=== PATIENT | male | born 1940 ===

== ENCOUNTER 2018-12-29 16:16 | Inpatient (IN) | payer MEDICARE, MEDICAID ==
[2018-12-29 16:22] VITALS: BMI 20.7
--- NOTE | 2018-12-29 17:12 | ED PDOC ---
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 Patient states that he has been sick with a cough, sore throat for X3 days. Patient history was given by patients daughter. The daughter states that patient went to PMD today and started feeling sick to the stomach and passed out while he was in the waiting room. Daughter states that the patient was sitting next to her and leaned to one side, and his eyes rolled back. Daughter also reports that patient made some moaning noises and did not respond to any of her questions. Patient vomited in the doctors office and on route to the hospital. The daughter reports that it took the patient 10-15 minutes to come back to normal. Patient reports he doesnt remember passing out. Patient reports that his stomach hurts and he thinks it is because he hasnt ea ten since this morning. Hes currently oriented times 3. According to the daughter patient hasnt seen PMD in about a year. He has not been taking his medication for hypertension, hypercholesterolemia. Patient denies headache and chest pain. PMD: Loco Parsons Jr, MD Past Medical History Reviewed: Historical Data, Nursing Documentation, Vital Signs Vital Signs: Last Vital Signs Temp 98.9 F 12/29/18 16:21 Pulse 71 12/29/18 16:21 Resp 18 12/29/18 16:21 BP 167/87 H 12/29/18 16:21 Pulse Ox 100 12/29/18 16:21 CATHIE Report Viewed: Yes - Medical History PMH: HTN, Hypercholesterolemia Other PMH: Stroke - Surgical History Surgical History: No Surg Hx - Family History Family History: States: Hypertension - Social History Current smoker - smoking cessation education provided: No Alcohol: None Drugs: Denies - Home Medications Home Medications: Ambulatory Orders Medication Instructions Recorded Aspirin [Ecotrin] 81 mg PO DAILY 12/29/18 Atorvastatin [Lipitor] 40 mg PO HS 12/29/18 Lisinopril [Zestril] 20 mg PO DAILY 12/29/18 Sennosides [Senna Lax] 8.6 mg PO DAILY PRN 12/29/18 amLODIPine [Norvasc] 10 mg PO DAILY 12/29/18 Acetaminophen [Tylenol 325mg tab] 650 mg PO Q4 PRN tab 12/31/18 - Allergies Allergies/Adverse Reactions: Allergies Allergy/AdvReac Type Severity Reaction Status Date / Time Penicillins Allergy RASH Verified 12/29/18 16:21 Review of Systems ROS Statement: Except As Marked, All Systems Reviewed And Found Negative ENT: Positive for: Other (sore throat) Cardiovascular: Negative for: Chest Pain Respiratory: Positive for: Cough Neurological: Negative for: Headache Physical Exam - Reviewed Nursing Documentation Reviewed: Yes Vital Signs Reviewed: Yes - Physical Exam Appears: Positive for: Non-toxic, No Acute Distress Head Exam: Positive for: ATRAUMATIC Skin: Positive for: Warm, Dry Eye Exam: Positive for: EOMI, PERRL ENT: Negative for: Pharyngeal Erythema, Tonsillar Exudate Neck: Positive for: Painless ROM, Supple Cardiovascular/Chest: Positive for: Regular Rate, Rhythm. Negative for: Murmur Respiratory: Positive for: Normal Breath Sounds. Negative for: Respiratory Distress Gastrointestinal/Abdominal: Positive for: Soft, Tenderness (epigastric tenderness on palpation). Negative for: Mass, Guarding, Rebound Back: Positive for: Normal Inspection. Negative for: Decreased ROM Extremity: Positive for: Normal ROM. Negative for: Deformity Lymphatic: Negative for: Adenopathy Neurological/Psych: Positive for: Awake, Alert, Oriented (x3), vehicle inspector II-XII (intac). Negative for: Motor/Sensory Deficits, Facial Droop - Laboratory Results Result Diagrams: 12/31/18 17:41 12/31/18 17:41 - ECG O2 Sat by Pulse Oximetry: 100 (RA) Pulse Ox Interpretation: Normal Medical Decision Making Medical Decision Making: Time: 16:22 Initial Impression: Altered Mental status Differential includes seizure, dehydration, electrolyte abnormality, TIA Plan: -Type and screen -CT head w/o contrast -Electrocardiogram -Complete metabolic panel -Lactic acid -Lipase -Magnesium -Phosphorous -troponin 1 -ED urine dipstick (POC) -EKG -CBC with differenital -re-evaluate 17:16 CHEST XRAY Accession No. : [id number] Patient Name / ID : GIORGI HUDSON / [id number] Exam Date : 12/29/2018 17:16:25 ( Approved ) Study Comment : Sex / Age : M / 78Y Creator : Dictator : Tirso Austin MD Web Analytics Developer : End Finder Forming Department : Tirso Austin MD Approver2 : Report Date : My Comment : Date of service: 12/29/2018 HISTORY: syncope COMPARISON: No prior. TECHNIQUE: 1 view obtained. FINDINGS: LUNGS: No active pulmonary disease. PLEURA: No significant pleural effusion identified, no pneumothorax apparent. CARDIOVASCULAR: No aortic atherosclerotic calcification present. Cardiomegaly is not excluded no pulmonary vascular congestion. OSSEOUS STRUCTURES: . VISUALIZED UPPER ABDOMEN: Normal. OTHER FINDINGS: None. IMPRESSION: No infiltrate or pulmonary vascular congestion. No pleural effusion bilaterally. Cardiomegaly is not excluded. 17:[address] Accession No. : [id number] Patient Name / ID : GIORGI HUDSON / [id number] Exam Date : 12/29/2018 17:10:29 ( Approved ) Study Comment : Sex / Age : M / 78Y Creator : Jayla Santos MD Dictator : Jayla Santos MD Web Analytics Developer : End Finder Forming Department : Jayla Santos MD Approver2 : Report Date : 12/29/2018 17:41:24 My Comment : Date of service: 12/29/2018 PROCEDURE: CT HEAD WITHOUT CONTRAST. HISTORY: syncope or new onset seizure COMPARISON: None available. TECHNIQUE: Axial computed tomography images were obtained through the head/brain without intravenous contrast. Radiation dose: Total exam DLP = 684.68 mGy-cm. This CT exam was performed using one or more of the following dose reduction te chniques: Automated exposure control, adjustment of the mA and/or kV according to patient size, and/or use of iterative reconstruction technique. FINDINGS: HEMORRHAGE: No intracranial hemorrhage. BRAIN: Diffuse atrophy with prominence of the ventricles and sulci noted. No mass effect or edema. Intracranial atherosclerosis. Scattered periventricular and subcortical white matter hypodensities, which are nonspecific, but often seen with chronic microvascular ischemic disease. Please note that MRI with diffusion imaging is more sensitive in the detection of acute ischemic event. VENTRICLES: No hydrocephalus. CALVARIUM: Unremarkable. PARANASAL SINUSES: Moderate mucosal thickening of the ethmoid air cells. MASTOID AIR CELLS: Unremarkable as visualized. No inflammatory changes. OTHER FINDINGS: None. IMPRESSION: No acute intracranial pathology identified. Moderate mucosal thickening of the ethmoid air cells; correlate clinically for chronic sinusitis. 1900 Labs unremarkable. Pt's exam essentially unchanged. Given pt's cardiovascular risk profile, needs obersvation for syncope Scribe Attestation: Documented by Chetan Bates, acting as a scribe for Sofiya Hernandez MD Provider Scribe Attestation: All medical record entries made by the Scribe were at my direction and personally dictated by me. I have reviewed the chart and agree that the record accurately reflects my personal performance of the history, physical exam, medical decision making, and the department course for this patient. I have also personally directed, reviewed, and agree with the discharge instructions and disposition Disposition - Clinical Impression Clinical Impression: Syncope and collapse Discussed With : Daniel Thompson Doctor Will See Patient In The: Hospital Counseled Patient/Family Regarding: Studies Performed, Diagnosis - Disposition Disposition Time: 19:00 Condition: FAIR - Pt Status Changed To: Hospital Disposition Of: Observation - POA Present On Arrival: Falls Or Trauma
[2018-12-29 17:17] LABS: BASO # 0.1 K/uL (0.0-0.2); BASO % 0.5 % (0.0-2.0); EOS # 0.3 K/uL (0.0-0.7); EOS % 2.4 % (0.0-4.0); HEMOGLOBIN 13.4 g/dL (12.0-18.0); LYMPH % 8.6 % (20.0-40.0); MEAN CELL VOLUME 89.2 fl (80.0-94.0); MEAN CORPUSCULAR HEMOGLOBIN 29.7 pg (27.0-31.0); MEAN CORPUSCULAR HGB CONC 33.3 g/dL (33.0-37.0); MEAN PLATELET VOLUME 8.1 fl (7.2-11.7); MONO # 0.8 K/uL (0.0-0.8); MONO % 7.1 % (0.0-10.0); NEUT # 9.2 K/uL (1.8-7.0); NEUT % 81.4 % (50.0-75.0); NRBC % 0.1 % (0.0-0.0); PLATELET COUNT 174 K/uL (130-400); RED CELL DISTRIBUTION WIDTH 14.1 % (11.5-14.5); WHITE BLOOD COUNT 11.3 K/uL (4.8-10.8)
[2018-12-29 17:22] LABS: PROTHROMBIN TIME 11.4 Seconds (9.8-13.1)
[2018-12-29 17:24] LABS: PARTIAL THROMBOPLASTIN TIME 26.2 Seconds (25.6-37.1)
[2018-12-29 17:29] LABS: ALB/GLOB RATIO 1.2 (1.0-2.1); ALBUMIN 4.4 g/dL (3.5-5.0); ALT/SGPT 33 U/L (21-72); AST/SGOT 34 U/L (17-59); BLOOD UREA NITROGEN 24 mg/dl (9-20); CALCIUM 9.5 mg/dL (8.4-10.2); GFR NON-AFRICAN AMERICAN 59; LIPASE 26 U/L (23-300)
--- NOTE | 2018-12-29 17:45 | CT ---
Date of service: 12/29/2018 PROCEDURE: CT HEAD WITHOUT CONTRAST. HISTORY: syncope or new onset seizure COMPARISON: None available. TECHNIQUE: Axial computed tomography images were obtained through the head/brain without intravenous contrast. Radiation dose: Total exam DLP = 684.68 mGy-cm. This CT exam was performed using one or more of the following dose reduction techniques: Automated exposure control, adjustment of the mA and/or kV according to patient size, and/or use of iterative reconstruction technique. FINDINGS: HEMORRHAGE: No intracranial hemorrhage. BRAIN: Diffuse atrophy with prominence of the ventricles and sulci noted. No mass effect or edema. Intracranial atherosclerosis. Scattered periventricular and subcortical white matter hypodensities, which are nonspecific, but often seen with chronic microvascular ischemic disease. Please note that MRI with diffusion imaging is more sensitive in the detection of acute ischemic event. VENTRICLES: No hydrocephalus. CALVARIUM: Unremarkable. PARANASAL SINUSES: Moderate mucosal thickening of the ethmoid air cells. MASTOID AIR CELLS: Unremarkable as visualized. No inflammatory changes. OTHER FINDINGS: None. IMPRESSION: No acute intracranial pathology identified. Moderate mucosal thickening of the ethmoid air cells; correlate clinically for chronic sinusitis.
[2018-12-29 18:21] LABS: BANDS 1 % (0-2); EOSINOPHIL 2 % (0-7); LYMPHOCYTE 10 % (20-50); MONOCYTE 8 % (0-10); NEUTROPHIL 79 % (42-75); PLATELET ESTIMATE NORMAL (NORMAL); TOTAL CELLS COUNTED 100
--- NOTE | 2018-12-29 19:17 | RAD ---
Date of service: 12/29/2018 HISTORY: syncope COMPARISON: No prior. TECHNIQUE: 1 view obtained. FINDINGS: LUNGS: No active pulmonary disease. PLEURA: No significant pleural effusion identified, no pneumothorax apparent. CARDIOVASCULAR: No aortic atherosclerotic calcification present. Cardiomegaly is not excluded no pulmonary vascular congestion. OSSEOUS STRUCTURES: . VISUALIZED UPPER ABDOMEN: Normal. OTHER FINDINGS: None. IMPRESSION: No infiltrate or pulmonary vascular congestion. No pleural effusion bilaterally. Cardiomegaly is not excluded.
[2018-12-29] MEDS ORDERED: Sodium Chloride 0.9% 500 ML IV STA (21:20)
[2018-12-30 01:01] LABS: URINE BILIRUBIN NEGATIVE (NEGATIVE); URINE BLOOD NEGATIVE (NEGATIVE); URINE CLARITY CLEAR (Clear); URINE COLOR YELLOW (YELLOW); URINE GLUCOSE (UA) NEG (NEGATIVE); URINE LEUKOCYTE ESTERASE NEG Leu/uL (Negative); URINE PROTEIN NEGATIVE (NEGATIVE); URINE UROBILINOGEN 0.2-1.0 mg/dL (0.2-1.0)
[2018-12-30 05:24] LABS: BASO % 0.4 % (0.0-2.0); EOS # 0.2 K/uL (0.0-0.7); HEMOGLOBIN 12.4 g/dL (12.0-18.0); LYMPH # 1.2 K/uL (1.0-4.3); LYMPH % 13.1 % (20.0-40.0); MEAN CELL VOLUME 89.4 fl (80.0-94.0); MEAN CORPUSCULAR HEMOGLOBIN 29.8 pg (27.0-31.0); MEAN CORPUSCULAR HGB CONC 33.4 g/dL (33.0-37.0); MEAN PLATELET VOLUME 8.5 fl (7.2-11.7); MONO # 0.9 K/uL (0.0-0.8); MONO % 9.9 % (0.0-10.0); NEUT # 6.8 K/uL (1.8-7.0); NEUT % 74.6 % (50.0-75.0); NRBC % 0.1 % (0.0-0.0); RBC 4.16 Mil/uL (4.40-5.90); RED CELL DISTRIBUTION WIDTH 14.2 % (11.5-14.5); WHITE BLOOD COUNT 9.1 K/uL (4.8-10.8)
[2018-12-30 05:30] LABS: ALB/GLOB RATIO 1.2 (1.0-2.1); ALBUMIN 3.8 g/dL (3.5-5.0); ALT/SGPT 34 U/L (21-72); AST/SGOT 27 U/L (17-59); BLOOD UREA NITROGEN 21 mg/dl (9-20); CALCIUM 9.1 mg/dL (8.4-10.2); GFR NON-AFRICAN AMERICAN > 60; HDL CHOLESTEROL 53 MG/DL (30-70)
[2018-12-30 05:40] LABS: LDL CHOLESTEROL 71 mg/dL (0-129)
--- NOTE | 2018-12-30 08:17 | CP.PCM.CON ---
History of Present Illness - History of Present Illness History of Present Illness: This 78-year-old hypertensive man was brought to the emergency room after he fainted while waiting to see his doctor in the doctor's office where he had gone after a couple of days of having had fever body aches and flulike syndrome. He is not a smoker or a diabetic has never suffered similar episodes of syncope in the past. He is a hypertensive who has taken his medications erratically. There was no seizure activity there was no loss of bladder or bowel control. Physical examination shows an elderly man who is alert awake coherent mildly febrile with a pulse rate of 84 bpm regular and a blood pressure of 156/70 mmHg while sitting up in bed. His jugular venous pressure was not elevated and there was no edema over his lower extremity. The pedal pulses were well felt. There were no carotid bruits. Extremities were warm nailbeds were pink. There was no central or peripheral cyanosis. There was no clubbing. The apex was in the fifth space the first and second heart sounds were normal a very brief apical systolic murmur was audible there was no gallop rhythm there were no rales abdomen was soft liver and spleen are not palpable. His electrocardiogram at admission shows left ventricular hypertrophy with si gnificant ST-T abnormalities secondary to LVH. An electrocardiogram this morning has similar findings. The lab data was noted. His BUN/creatinine after hydration appear improved this morning. Impression: Vasovagal episode probably aggravated by mild dehydration due to flulike syndrome. History of hypertension. The patient may be allowed to return home to be managed as an outpatient. Past Patient History - Past Medical History & Family History Past Medical History?: Yes - Past Social History Smoking Status: Never Smoked - CARDIAC Hx Cardiac Disorders: Yes Hx Hypercholesterolemia: Yes Hx Hypertension: Yes - PULMONARY Hx Respiratory Disorders: No - NEUROLOGICAL Hx Neurological Disorder: No - HEENT Hx HEENT Problems: No - RENAL Hx Chronic Kidney Disease: No - ENDOCRINE/METABOLIC Hx Endocrine Disorders: No - HEMATOLOGICAL/ONCOLOGICAL Hx Blood Disorders: No Hx AIDS: No Hx Human Immunodeficiency Virus (HIV): No - INTEGUMENTARY Hx Dermatological Problems: No - MUSCULOSKELETAL/RHEUMATOLOGICAL Hx Musculoskeletal Disorders: No Hx Falls: No - GASTROINTESTINAL Hx Gastrointestinal Disorders: No - GENITOURINARY/GYNECOLOGICAL Hx Genitourinary Disorders: No - PSYCHIATRIC Hx Psychophysiologic Disorder: No Hx Substance Use: No - SURGICAL HISTORY Hx Surgeries: No - ANESTHESIA Hx Anesthesia: No Meds Allergies/Adverse Reactions: Allergies Allergy/AdvReac Type Severity Reaction Status Date / Time Penicillins Allergy RASH Verified 12/29/18 16:21 - Medications Medications: Current Medications Amlodipine Besylate (Norvasc) 10 mg PO DAILY LOIS Aspirin (Ecotrin) 81 mg PO DAILY LOIS Atorvastatin Calcium (Lipitor) 40 mg PO HS LOIS Lisinopril (Zestril) 20 mg PO DAILY LOIS Results - Vital Signs Recent Vital Signs: Last Vital Signs Temp 98.7 F 12/30/18 07:56 Pulse 93 H 12/30/18 07:56 Resp 20 12/30/18 07:56 BP 172/88 H 12/30/18 07:56 Pulse Ox 106 H 12/30/18 07:56 - Labs Result Diagrams: 12/30/18 04:50 12/30/18 04:50 Labs: Laboratory Results - last 24 hr 12/29/18 12/29/18 12/29/18 16:42 17:00 17:00 WBC RBC Hgb Hct MCV MCH MCHC RDW Plt Count MPV Neut % (Auto) Lymph % (Auto) [place] % (Auto) Eos % (Auto) Baso % (Auto) Neut # (Auto) Lymph # (Auto) [place] # (Auto) Eos # (Auto) Baso # (Auto) Neutrophils % (Manual) Band Neutrophils % Lymphocytes % (Manual) Monocytes % (Manual) Eosinophils % (Manual) Platelet Estimate RBC Morphology PT INR APTT Sodium Potassium Chloride Carbon Dioxide Anion Gap BUN Creatinine Est GFR ( Amer) Est GFR (Non-Af Amer) POC Glucose (mg/dL) 85 Random Glucose Lactic Acid 1.3 Calcium Phosphorus Magnesium Total Bilirubin AST ALT Alkaline Phosphatase Troponin I Total Protein Albumin Globulin Albumin/Globulin Ratio Triglycerides Cholesterol LDL Cholesterol Direct HDL Cholesterol Lipase TSH 3rd Generation Urine Color Urine Clarity Urine pH Ur Specific [place] Urine Protein Urine Glucose (UA) Urine Ketones Urine Blood Urine Nitrate Urine Bilirubin Urine Urobilinogen Ur Leukocyte Esterase Urine RBC (Auto) Urine Microscopic WBC Influenza Typ A,B (EIA) Grp A Beta Strep Ag Blood Type A POSITIVE Blood Type Confirm Antibody Screen Negative BBK History Checked No verified bt 12/29/18 12/29/18 12/29/18 17:12 17:12 17:12 WBC 11.3 H RBC 4.50 Hgb 13.4 Hct 40.1 MCV 89.2 MCH 29.7 MCHC 33.3 RDW 14.1 Plt Count 174 MPV 8.1 Neut % (Auto) 81.4 H Lymph % (Auto) 8.[address] [place] % (Auto) 7.1 Eos % (Auto) 2.4 Baso % (Auto) 0.5 Neut # (Auto) 9.2 H Lymph # (Auto) 1.0 [place] # (Auto) 0.8 Eos # (Auto) 0.3 Baso # (Auto) 0.1 Neutrophils % (Manual) 79 H Band Neutrophils % 1 Lymphocytes % (Manual) 10 L Monocytes % (Manual) 8 Eosinophils % (Manual) 2 Platelet Estimate Normal RBC Morphology Normal PT 11.4 INR 1.0 APTT 26.2 Sodium 140 Potassium 5.4 H Chloride 106 Carbon Dioxide 26 Anion Gap 13 BUN 24 H Creatinine 1.2 Est GFR ( Amer) > 60 Est GFR (Non-Af Amer) 59 POC Glucose (mg/dL) Random Glucose 103 Lactic Acid Calcium 9.5 Phosphorus 4.4 Magnesium 2.4 H Total Bilirubin 0.7 AST 34 ALT 33 Alkaline Phosphatase 97 Troponin I 0.0160 Total Protein 8.0 Albumin 4.4 Globulin 3.6 Albumin/Globulin Ratio 1.2 Triglycerides Cholesterol LDL Cholesterol Direct HDL Cholesterol Lipase 26 TSH 3rd Generation Urine Color Urine Clarity Urine pH Ur Specific [place] Urine Protein Urine Glucose (UA) Urine Ketones Urine Blood Urine Nitrate Urine Bilirubin Urine Urobilinogen Ur Leukocyte Esterase Urine RBC (Auto) Urine Microscopic WBC Influenza Typ A,B (EIA) Grp A Beta Strep Ag Blood Type Blood Type Confirm Antibody Screen BBK History Checked 12/29/18 12/29/18 12/29/18 17:39 20:05 20:05 WBC RBC Hgb Hct MCV MCH MCHC RDW Plt Count MPV Neut % (Auto) Lymph % (Auto) [place] % (Auto) Eos % (Auto) Baso % (Auto) Neut # (Auto) Lymph # (Auto) [place] # (Auto) Eos # (Auto) Baso # (Auto) Neutrophils % (Manual) Band Neutrophils % Lymphocytes % (Manual) Monocytes % (Manual) Eosinophils % (Manual) Platelet Estimate RBC Morphology PT INR APTT Sodium Potassium Chloride Carbon Dioxide Anion Gap BUN Creatinine Est GFR ( Amer) Est GFR (Non-Af Amer) POC Glucose (mg/dL) Random Glucose Lactic Acid Calcium Phosphorus Magnesium Total Bilirubin AST ALT Alkaline Phosphatase Troponin I Total Protein Albumin Globulin Albumin/Globulin Ratio Triglycerides Cholesterol LDL Cholesterol Direct HDL Cholesterol Lipase TSH 3rd Generation Urine Color Urine Clarity Urine pH Ur Specific [place] Urine Protein Urine Glucose (UA) Urine Ketones Urine Blood Urine Nitrate Urine Bilirubin Urine Urobilinogen Ur Leukocyte Esterase Urine RBC (Auto) Urine Microscopic WBC Influenza Typ A,B (EIA) Negative for flu a/b Grp A Beta Strep Ag Negative Blood Type Blood Type Confirm A POSITIVE Antibody Screen BBK History Checked 12/29/18 12/30/18 12/30/18 23:10 04:50 04:50 WBC 9.1 RBC 4.16 L Hgb 12.4 Hct 37.2 MCV 89.4 MCH 29.8 MCHC 33.4 RDW 14.2 Plt Count 161 MPV 8.5 Neut % (Auto) 74.6 Lymph % (Auto) 13.[address] [place] % (Auto) 9.9 Eos % (Auto) 2.0 Baso % (Auto) 0.4 Neut # (Auto) 6.8 Lymph # (Auto) 1.2 [place] # (Auto) 0.9 H Eos # (Auto) 0.2 Baso # (Auto) 0.0 Neutrophils % (Manual) Band Neutrophils % Lymphocytes % (Manual) Monocytes % (Manual) Eosinophils % (Manual) Platelet Estimate RBC Morphology PT INR APTT Sodium 142 Potassium 4.7 Chloride 107 Carbon Dioxide 29 Anion Gap 11 BUN 21 H Creatinine 1.1 Est GFR ( Amer) > 60 Est GFR (Non-Af Amer) > 60 POC Glucose (mg/dL) Random Glucose 102 Lactic Acid Calcium 9.1 Phosphorus Magnesium Total Bilirubin 0.8 AST 27 ALT 34 Alkaline Phosphatase 84 Troponin I Total Protein 7.0 Albumin 3.8 Globulin 3.2 Albumin/Globulin Ratio 1.2 Triglycerides 63 Cholesterol 146 LDL Cholesterol Direct 71 HDL Cholesterol 53 Lipase TSH 3rd Generation 0.83 Urine Color Yellow Urine Clarity Clear Urine pH 7.0 Ur Specific [place] 1.011 Urine Protein Negative Urine Glucose (UA) Neg Urine Ketones Negative Urine Blood Negative Urine Nitrate Negative Urine Bilirubin Negative Urine Urobilinogen 0.2-1.0 Ur Leukocyte Esterase Neg Urine RBC (Auto) < 1 Urine Microscopic WBC < 1 Influenza Typ A,B (EIA) Grp A Beta Strep Ag Blood Type Blood Type Confirm Antibody Screen BBK History Checked
--- NOTE | 2018-12-30 09:35 | CARD ---
APPROVED REPORT Date of service: 12/30/2018 EKG Measurement Heart [id number] <Conclusion> Sinus tachycardia Possible Left atrial enlargement Left ventricular hypertrophy ST & T wave abnormality, consider lateral ischemia Abnormal ECG
--- NOTE | 2018-12-30 09:49 | CARD ---
APPROVED REPORT Date of service: 12/29/2018 EKG Measurement Heart [id number] <Conclusion> Normal sinus rhythm Left ventricular hypertrophy with repolarization abnormality Abnormal ECG
--- NOTE | 2018-12-30 12:31 | MRI ---
Date of service: 12/30/2018 PROCEDURE: MRI BRAIN WITHOUT CONTRAST HISTORY: Syncope COMPARISON: Comparison made with prior CT scan brain 12/29/2818. TECHNIQUE: Multiplanar, multisequence MR images of the brain were obtained without intravenous contrast enhancement. FINDINGS: HEMORRHAGE: No acute parenchymal, subarachnoid or extra-axial hemorrhage.. There are multiple tiny focal areas of dark T2 signal seen scattered about the supra and infratentorial compartment consistent with small hemosiderin deposits.. Rule out chronic microhemorrhages possibly due to chronic ischemia. Small cavernomas less likely DWI: No evidence of an acute or early subacute infarction seen on diffusion imaging BRAIN PARENCHYMA: Moderate diffuse/confluent chronic periventricular white matter ischemic changes seen extending peripherally into the deep and subcortical white matter both cerebral hemispheres. Additionally, there are multiple more discrete chronic infarcts scattered about the deep and subcortical white matter and both basal nuclei. Minor chronic ischemic changes seen in the brainstem. Small chronic left cerebellar infarct not completely excluded. Moderate generalized volume loss. VENTRICLES: No obstructive hydrocephalus. CRANIUM: Calvarium appears grossly unremarkable. ORBITS: Orbits and contents unremarkable. PARANASAL SINUSES/MASTOIDS: Near complete opacification right maxillary antrum with mild mucosal thickening left maxillary antrum and with possible small bilateral fluid levels. Mild mucosal thickening within the ethmoid air complex extending superiorly into the frontal sinus. VASCULAR SYSTEM: Visualized major vascular flow voids at skull base patent. OTHER FINDINGS: None. IMPRESSION: No acute intracranial hemorrhage however there are multiple tiny hemosiderin deposits seen scattered about the supra and infratentorial compartment consistent with micro hemorrhages possibly due to chronic ischemia. Findings could be due to ischemia however tiny cavernomas less likely. Moderate chronic white matter ischemic changes with few scattered chronic bilateral basal nuclei and brainstem lacunar type infarcts. Questionable tiny chronic lacunar-type infarct left cerebellum. Moderate generalized volume loss. Mucoperiosteal inflammatory changes within maxillary, ethmoid and frontal sinuses.
--- NOTE | 2018-12-30 14:27 | CT ---
Date of service: 12/30/2018 PROCEDURE: CT SINUSES WITHOUT CONTRAST HISTORY: Questionable chronic sinusitis COMPARISON: None available. TECHNIQUE: Contiguous axial CT images of the paranasal sinuses were obtained. Coronal and sagittal reformats were generated. Radiation dose: Total exam DLP = 644.61 mGy-cm. This CT exam was performed using one or more of the following dose reduction techniques: Automated exposure control, adjustment of the mA and/or kV according to patient size, and/or use of iterative reconstruction technique. FINDINGS: FRONTAL SINUSES: Mild mucosal thickening seen within the inferior margins of the frontal sinus left greater than right. ETHMOID SINUSES: There is mild to moderate mucosal thickening within the ethmoid air complex. SPHENOID SINUSES: There is mild partially aerosolized mucosal thickening right chamber sphenoid sinus MAXILLARY SINUSES: Subtotal opacification right maxillary antrum with moderate mucosal thickening left maxillary antrum. SINUS DRAINAGE: Osteomeatal complexes, frontal recesses and sphenoethmoid recesses clear. NASAL SEPTUM: No significant deviation. No destructive lesion. There appears to be hypertrophy of the nasal mucosa more so on the left side. Rule out concomitant nasal polyps. Direct visualization recommended. SKULL BASE: Unremarkable. TEMPORAL BONES: Middle ears and mastoid grossly unremarkable. OTHER FINDINGS: There may be a small radicular cyst surrounding the roots of the right last molar tooth-wisdom tooth IMPRESSION: There are chronic pansinusitis changes as described. Hypertrophy of the nasal mucosa left greater than right. Rule out nasal polyps. Direct visualization recommended for further evaluation.
--- NOTE | 2018-12-30 15:43 | CP.PCM.HP ---
History of Present Illness - History of Present Illness History of Present Illness: CC: Syncopal episode. 78 y/o M, PMHx. HTN, Hypercholesterolemia, was brought to [facility] on 12/29/18 via EMS for evaluation of witnessed syncope by daughter on DOA. As per daughter, Pt wasn't feeling well and while at the Dr's office, suddenly he lean on her daughter side, his eyes rolled back and passed out, Pt had nausea /vomiting x2 associated to episode, not answering questions with moaning noises and LOC, after about 15 minutes he went back to his base line. Worsening symptoms: Cough, sore throat, tactile fever, stomach , body ache and weakness x 3 days [employer]. Aggravated factor: Not in compliance with Dr's visits or medications for his HTN/cholesterol. Pt denied: Chills, diarrhea, urinary symptoms, headache, CP, SOB, sick contact, recent travel out of [facility], Hx of Seizure. CXR: No infiltrate or pulmonary vascular congestion, no pleural effusion, Cardiomegaly not excluded. Head CT: No intracranial pathology. 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 Questionable tiny chronic-type infarct left cerebellum. Sinuses CT: Chronic Pansinusitis changes. Hypertrophy of the nasal mucouse L > R. Rule out nasal polyps. 1st EKG: Normal sinus rhythm, Left ventricular hypertrophy with repolar ization abnormality. 2nd EKG: Sinus tachycardia, ST and ST wave abnormality. Present on Admission - Present on Admission Any Indicators Present on Admission: No Review of Systems - Constitutional Constitutional: Fever (tactile), Weakness - EENT Eyes: Other (negative) Ears: Other (negative) Nose/Mouth/Throat: Other (negative) - Cardiovascular Cardiovascular: Other (negative) - Respiratory Respiratory: Other (negative) - Gastrointestinal Gastrointestinal: Nausea, Vomiting - Genitourinary Genitourinary: Other (negative) - Musculoskeletal Musculoskeletal: Other (negative) - Integumentary Integumentary: Other (negative) - Neurological Neurological: Memory Loss, Syncope - Psychiatric Psychiatric: Other (negative) - Endocrine Endocrine: Other (negative) - Hematologic/Lymphatic Hematologic: Other (negative) Past Patient History - Past Medical History & Family History Past Medical History?: Yes Pertinent Family History: Unknown - Past Social History Smoking Status: Never Smoked Alcohol: None Drugs: Denies Home Situation {Lives}: With Family - CARDIAC Hx Cardiac Disorders: Yes Hx Hypercholesterolemia: Yes Hx Hypertension: Yes - PULMONARY Hx Respiratory Disorders: No - NEUROLOGICAL Hx Neurological Disorder: No - HEENT Hx HEENT Problems: No - RENAL Hx Chronic Kidney Disease: No - ENDOCRINE/METABOLIC Hx Endocrine Disorders: No - HEMATOLOGICAL/ONCOLOGICAL Hx Blood Disorders: No Hx AIDS: No Hx Human Immunodeficiency Virus (HIV): No - INTEGUMENTARY Hx Dermatological Problems: No - MUSCULOSKELETAL/RHEUMATOLOGICAL Hx Musculoskeletal Disorders: No Hx Falls: No - GASTROINTESTINAL Hx Gastrointestinal Disorders: No - GENITOURINARY/GYNECOLOGICAL Hx Genitourinary Disorders: No - PSYCHIATRIC Hx Psychophysiologic Disorder: No Hx Substance Use: No - SURGICAL HISTORY Hx Surgeries: No - ANESTHESIA Hx Anesthesia: No Meds Allergies/Adverse Reactions: Allergies Allergy/AdvReac Type Severity Reaction Status Date / Time Penicillins Allergy RASH Verified 12/29/18 16:21 Physical Exam - Constitutional Appears: No Acute Distress - Head Exam Head Exam: NORMAL INSPECTION - Eye Exam Eye Exam: PERRL - ENT Exam ENT Exam: Normal Exam - Neck Exam Neck exam: Positive for: Normal Inspection - Respiratory Exam Respiratory Exam: NORMAL BREATHING PATTERN - Cardiovascular Exam Cardiovascular Exam: REGULAR RHYTHM, Systolic Murmur - GI/Abdominal Exam GI & Abdominal Exam: Normal Bowel Sounds, Soft - Extremities Exam Extremities exam: Positive for: normal inspection - Back Exam Back exam: NORMAL INSPECTION - Neurological Exam Neurological exam: Alert, Oriented x3 Additional comments: No focal motor/sensory deficit. - Psychiatric Exam Psychiatric exam: Normal Mood - Skin Skin Exam: Normal Color, Warm Results - Vital Signs Recent Vital Signs: Last Vital Signs Temp 98.5 F 12/30/18 11:38 Pulse 84 12/30/18 11:38 Resp 20 12/30/18 11:38 BP 150/73 12/30/18 11:38 Pulse Ox 98 12/30/18 11:38 reviewed J.PKleber - Labs Result Diagrams: 12/30/18 04:50 12/30/18 04:50 Labs: Laboratory Results - last 24 hr 12/29/18 12/29/18 12/29/18 16:42 17:00 17:00 WBC RBC Hgb Hct MCV MCH MCHC RDW Plt Count MPV Neut % (Auto) Lymph % (Auto) Todd % (Auto) Eos % (Auto) Baso % (Auto) Neut # (Auto) Lymph # (Auto) Todd # (Auto) Eos # (Auto) Baso # (Auto) Neutrophils % (Manual) Band Neutrophils % Lymphocytes % (Manual) Monocytes % (Manual) Eosinophils % (Manual) Platelet Estimate RBC Morphology PT INR APTT Sodium Potassium Chloride Carbon Dioxide Anion Gap BUN Creatinine Est GFR ( Amer) Est GFR (Non-Af Amer) POC Glucose (mg/dL) 85 Random Glucose Lactic Acid 1.3 Calcium Phosphorus Magnesium Total Bilirubin AST ALT Alkaline Phosphatase Troponin I Total Protein Albumin Globulin Albumin/Globulin Ratio Triglycerides Cholesterol LDL Cholesterol Direct HDL Cholesterol Lipase TSH 3rd Generation Urine Color Urine Clarity Urine pH Ur Specific [place] Urine Protein Urine Glucose (UA) Urine Ketones Urine Blood Urine Nitrate Urine Bilirubin Urine Urobilinogen Ur Leukocyte Esterase Urine RBC (Auto) Urine Microscopic WBC Influenza Typ A,B (EIA) Grp A Beta Strep Ag Blood Type A POSITIVE Blood Type Confirm Antibody Screen Negative BBK History Checked No verified bt 12/29/18 12/29/18 12/29/18 17:12 17:12 17:12 WBC 11.3 H RBC 4.50 Hgb 13.4 Hct 40.1 MCV 89.2 MCH 29.7 MCHC 33.3 RDW 14.1 Plt Count 174 MPV 8.1 Neut % (Auto) 81.4 H Lymph % (Auto) 8.6 L Todd % (Auto) 7.1 Eos % (Auto) 2.4 Baso % (Auto) 0.5 Neut # (Auto) 9.2 H Lymph # (Auto) 1.0 Todd # (Auto) 0.8 Eos # (Auto) 0.3 Baso # (Auto) 0.1 Neutrophils % (Manual) 79 H Band Neutrophils % 1 Lymphocytes % (Manual) 10 L Monocytes % (Manual) 8 Eosinophils % (Manual) 2 Platelet Estimate Normal RBC Morphology Normal PT 11.4 INR 1.0 APTT 26.2 Sodium 140 Potassium 5.4 H Chloride 106 Carbon Dioxide 26 Anion Gap 13 BUN 24 H Creatinine 1.2 Est GFR ( Amer) > 60 Est GFR (Non-Af Amer) 59 POC Glucose (mg/dL) Random Glucose 103 Lactic Acid Calcium 9.5 Phosphorus 4.4 Magnesium 2.4 H Total Bilirubin 0.7 AST 34 ALT 33 Alkaline Phosphatase 97 Troponin I 0.0160 Total Protein 8.0 Albumin 4.4 Globulin 3.6 Albumin/Globulin Ratio 1.2 Triglycerides Cholesterol LDL Cholesterol Direct HDL Cholesterol Lipase 26 TSH 3rd Generation Urine Color Urine Clarity Urine pH Ur Specific [place] Urine Protein Urine Glucose (UA) Urine Ketones Urine Blood Urine Nitrate Urine Bilirubin Urine Urobilinogen Ur Leukocyte Esterase Urine RBC (Auto) Urine Microscopic WBC Influenza Typ A,B (EIA) Grp A Beta Strep Ag Blood Type Blood Type Confirm Antibody Screen BBK History Checked 12/29/18 12/29/18 12/29/18 17:39 20:05 20:05 WBC RBC Hgb Hct MCV MCH MCHC RDW Plt Count MPV Neut % (Auto) Lymph % (Auto) Todd % (Auto) Eos % (Auto) Baso % (Auto) Neut # (Auto) Lymph # (Auto) Todd # (Auto) Eos # (Auto) Baso # (Auto) Neutrophils % (Manual) Band Neutrophils % Lymphocytes % (Manual) Monocytes % (Manual) Eosinophils % (Manual) Platelet Estimate RBC Morphology PT INR APTT Sodium Potassium Chloride Carbon Dioxide Anion Gap BUN Creatinine Est GFR ( Amer) Est GFR (Non-Af Amer) POC Glucose (mg/dL) Random Glucose Lactic Acid Calcium Phosphorus Magnesium Total Bilirubin AST ALT Alkaline Phosphatase Troponin I Total Protein Albumin Globulin Albumin/Globulin Ratio Triglycerides Cholesterol LDL Cholesterol Direct HDL Cholesterol Lipase TSH 3rd Generation Urine Color Urine Clarity Urine pH Ur Specific [place] Urine Protein Urine Glucose (UA) Urine Ketones Urine Blood Urine Nitrate Urine Bilirubin Urine Urobilinogen Ur Leukocyte Esterase Urine RBC (Auto) Urine Microscopic WBC Influenza Typ A,B (EIA) Negative for flu a/b Grp A Beta Strep Ag Negative Blood Type Blood Type Confirm A POSITIVE Antibody Screen BBK History Checked 12/29/18 12/30/18 12/30/18 23:10 04:50 04:50 WBC 9.1 RBC 4.16 L Hgb 12.4 Hct 37.2 MCV 89.4 MCH 29.8 MCHC 33.4 RDW 14.2 Plt Count 161 MPV 8.5 Neut % (Auto) 74.6 Lymph % (Auto) 13.1 L Todd % (Auto) 9.9 Eos % (Auto) 2.0 Baso % (Auto) 0.4 Neut # (Auto) 6.8 Lymph # (Auto) 1.2 Todd # (Auto) 0.9 H Eos # (Auto) 0.2 Baso # (Auto) 0.0 Neutrophils % (Manual) Band Neutrophils % Lymphocytes % (Manual) Monocytes % (Manual) Eosinophils % (Manual) Platelet Estimate RBC Morphology PT INR APTT Sodium 142 Potassium 4.7 Chloride 107 Carbon Dioxide 29 Anion Gap 11 BUN 21 H Creatinine 1.1 Est GFR ( Amer) > 60 Est GFR (Non-Af Amer) > 60 POC Glucose (mg/dL) Random Glucose 102 Lactic Acid Calcium 9.1 Phosphorus Magnesium Total Bilirubin 0.8 AST 27 ALT 34 Alkaline Phosphatase 84 Troponin I Total Protein 7.0 Albumin 3.8 Globulin 3.2 Albumin/Globulin Ratio 1.2 Triglycerides 63 Cholesterol 146 LDL Cholesterol Direct 71 HDL Cholesterol 53 Lipase TSH 3rd Generation 0.83 Urine Color Yellow Urine Clarity Clear Urine pH 7.0 Ur Specific [place] 1.011 Urine Protein Negative Urine Glucose (UA) Neg Urine Ketones Negative Urine Blood Negative Urine Nitrate Negative Urine Bilirubin Negative Urine Urobilinogen 0.2-1.0 Ur Leukocyte Esterase Neg Urine RBC (Auto) < 1 Urine Microscopic WBC < 1 Influenza Typ A,B (EIA) Grp A Beta Strep Ag Blood Type Blood Type Confirm Antibody Screen BBK History Checked reviewed J.P. - EKG Data EKG comments: reviewed J.P. - Imaging and Cardiology Chest x-ray Status: Report reviewed by me CT scan - head Status: Report reviewed by me (Madelaine) MRI - head Status: Report reviewed by me (JKleberP.) Sinuses CT Status: Report reviewed by me (Regine.) Assessment & Plan (1) Syncope Status: Acute Priority: High (2) Viral syndrome Status: Acute Priority: High (3) Ischemic changes on head CT Status: Chronic Priority: High (4) Brain stem infarction Status: Chronic Priority: High (5) Hx of cerebral infarction Status: Chronic Priority: High (6) HTN (hypertension) Status: Chronic Priority: Medium (7) Hypercholesterolemia Status: Chronic Priority: Medium (8) Dehydration Status: Resolved - Assessment and Plan (Free Text) Plan: F/U Carotid/Vert. U-S, EEG, Echo, Throat C-S, Blood C-S, U C-S, continue Z ithromax, ASA, Lipitor, Zestril, Norvasc and rest of Tx. Cardiology consult appreciated. Neurology consult. - Date & Time Date: 12/30/18
[2018-12-30] MEDS: Azithromycin 500 MG in Sodium Chloride 0.9% 250 ML IVPB SCH (22:14)
[2018-12-30 22:45] LABS: URINE BILIRUBIN NEGATIVE (NEGATIVE); URINE BLOOD NEGATIVE (NEGATIVE); URINE CLARITY CLEAR (Clear); URINE COLOR YELLOW (YELLOW); URINE GLUCOSE (UA) NEG (NEGATIVE); URINE LEUKOCYTE ESTERASE NEG Leu/uL (Negative); URINE PROTEIN NEGATIVE (NEGATIVE); URINE UROBILINOGEN 0.2-1.0 mg/dL (0.2-1.0)
--- NOTE | 2018-12-31 07:13 | PCM.EEG ---
Electroencephalogram Report - Electroencephalogram Report Procedure Date: 12/30/18 Medication: ASA, Amlodipine, Lisinopril Interpretation: Technical Information: This was a 16 -channel EEG, 1-channel EKG routine EEG performed using an [employer] machine. Electrodes were applied using the 10/20 international placement system. Start; ;08 End; ;58 Total 50 minutes. Clinical Information: Syncope During resting wakefulness there was a symmetric posterior dominant rhythm at 8.5-9.5 Hz, 30-50 uV, which was reactive to eye opening and closing. Drowsiness (19;26) was associated with fragmentation of the posterior dominant rhythm and with slow roving eye movements. Light sleep was not recorded. Hyperventilation was not performed. Photic stimulation was performed and there were no changes on the record. Focal abnormality; none ECG was associated with a normal sinus rhythm. Impression: This is a normal awake and drowsy electroencephalogram.
[2018-12-31] MEDS: Azithromycin 500 MG in Sodium Chloride 0.9% 250 ML IVPB SCH (08:12)
--- NOTE | 2018-12-31 15:28 | CP.PCM.CON ---
History of Present Illness - History of Present Illness History of Present Illness: Neurology Consultation Note: Consult requested by Dr. Thompson Mr. Martin is a 78-year-old man with a past medical history of HTN, HLD, who has had a flu-like illness for the past week and was at his doctors office waiting for an appointment, when he had a syncopal episode. There were no reported abnormal movements noted, he did not have any urinary/bowel incontinence or tongue biting. MRI of the brain was done and showed some chr onic ischemic changes along with mild hemosiderin deposits consistent with chronic hypertensive effects. EEG was normal. The patient has no focal deficits or complaints. Review of Systems - Constitutional Constitutional: As Per HPI - EENT Eyes: absent: As Per HPI, Blind Spots, Blurred Vision, Change in Vision, Decreased Night Vision, Diplopia, Discharge, Dry Eye, Exophthalmos, Floaters, I rritation, Itchy Eyes, Loss of Peripheral Vision, Pain, Photophobia, Requires Corrective Lenses, Sees Flashes, Spots in Vision, Tunnel Vision, Other Visual Disturbances, Loss of Vision, Other Ears: absent: As Per HPI, Decreased Hearing, Ear Discharge, Ear Pain, Tinnitus, Abnormal Hearing, Disequilibrium, Dizziness, Other Nose/Mouth/Throat: absent: As Per HPI, Epistaxis, Nasal Congestion, Nasal Discharge, Nasal Obstruction, Nasal Trauma, Nose Pain, Post Nasal Drip, Sinus Pain, Sinus Pressure, Bleeding Gums, Change in Voice, Dental Pain, Dry Mouth, Dysphagia, Halitosis, Hoarsness, Lip Swelling, Mouth Lesions, Mouth Pain, Odynophagia, Sore Throat, Throat Swelling, Tongue Swelling, Facial Pain, Neck Pain, Neck Mass, Other - Cardiovascular Cardiovascular: absent: As Per HPI, Acrocyanosis, Chest Pain, Chest Pain at Rest, Chest Pain with Activity, Claudication, Diaphoresis, Dyspnea, Dyspnea on Exertion, Edema, Irregular Heart Rhythm, Pain Radiating to Arm/Neck/Jaw, Leg Edema, Leg Ulcers, Lightheadedness, Orthopnea, Palpitations, Paroxysmal Nocturnal Dyspnea, Pedal Edema, Radiating Pain, Rapid Heart Rate, Slow Heart Rate, Syncope, Other - Respiratory Respiratory: absent: As Per HPI, Cough, Dyspnea, Hemoptysis, Dyspnea on Exertion, Wheezing, Snoring, Stridor, Pain on Inspiration, Chest Congestion, Excessive Mucous Production, Change in Mucous Color, Pain with Coughing, Other - Gastrointestinal Gastrointestinal: absent: As Per HPI, Abdominal Pain, Belching, Bloating, Change in Bowel Habits, Change in Stool Character, Coffee Ground Emesis, Constipation, Cramping, Diarrhea, Dyspepsia, Dysphagia, Early Satiety, Excessive Flatus, Fecal Incontinence, Heartburn, Hematemesis, Hematochezia, Loose Stools, Melena, Nausea, Odynophagia, Temesmus, Vomiting, Other - Musculoskeletal Musculoskeletal: absent: As Per HPI, Abnormal Gait, Arthralgias, Atrophy, Back Pain, Deformity, Joint Swelling, Limited Range of Motion, Loss of Height, Muscle Cramps, Muscle Weakness, Myalgias, Neck Pain, Numbness, Radiating Pain into Limb, Stiffness, Tingling, Other - Integumentary Integumentary: absent: As Per HPI, Acne, Alopecia, Bleeding Lesions, Change in Hair, Change in Nails, Change in Pigmentation, Changing Lesions, Dry Skin, Erythema, Furuncle, Hirsutism, Lesions, New Lesions, Non-Healing Lesions, Photosensitivity, Pruritus, Rash, Skin Pain, Skin Ulcer, Sores, Striae, Swelling, Unusual Bruising, Wounds, Jaundice, Other - Neurological Neurological: As Per HPI - Psychiatric Psychiatric: absent: As Per HPI, Abnormal Sleep Pattern, Anhedonia, Anxiety, Auditory Hallucinations, Behavioral Changes, Change in Appetite, Change in Libido, Confusion, Depression, Difficulty Concentrating, Hallucinations, Homicidal Ideation, Hopelessness, Irritability, Memory Loss, Mood Swings, Panic Attacks, Paranoia, Suicidal Ideation, Visual Hallucinations, Tactile Hallucinations, Other - Endocrine Endocrine: absent: As Per HPI, Change in Body Appearance, Change in Libido, Cold Intolorance, Deepening of Voice, Excessive Sweating, Fatigue, Flushing, Heat Intolorance, Increase in Ring/Shoe/Hat Size, Palpitations, Polydipsia, Polyphagia, Polyuria, Other - Hematologic/Lymphatic Hematologic: absent: As Per HPI, Easy Bleeding, Easy Bruising, Lymphadenopathy, Other Past Patient History - Past Medical History & Family History Past Medical History?: Yes - Past Social History Smoking Status: Never Smoked Alcohol: None Drugs: Denies Home Situation {Lives}: With Family - CARDIAC Hx Cardiac Disorders: Yes Hx Hypercholesterolemia: Yes Hx Hypertension: Yes - PULMONARY Hx Respiratory Disorders: No - NEUROLOGICAL Hx Neurological Disorder: No - HEENT Hx HEENT Problems: No - RENAL Hx Chronic Kidney Disease: No - ENDOCRINE/METABOLIC Hx Endocrine Disorders: No - HEMATOLOGICAL/ONCOLOGICAL Hx Blood Disorders: No Hx AIDS: No Hx Human Immunodeficiency Virus (HIV): No - INTEGUMENTARY Hx Dermatological Problems: No - MUSCULOSKELETAL/RHEUMATOLOGICAL Hx Musculoskeletal Disorders: No Hx Falls: No - GASTROINTESTINAL Hx Gastrointestinal Disorders: No - GENITOURINARY/GYNECOLOGICAL Hx Genitourinary Disorders: No - PSYCHIATRIC Hx Psychophysiologic Disorder: No Hx Substance Use: No - SURGICAL HISTORY Hx Surgeries: No - ANESTHESIA Hx Anesthesia: No Meds Allergies/Adverse Reactions: Allergies Allergy/AdvReac Type Severity Reaction Status Date / Time Penicillins Allergy RASH Verified 12/29/18 16:21 - Medications Medications: Current Medications Acetaminophen (Tylenol 325mg Tab) 650 mg PO Q4 PRN PRN Reason: Headache Acetaminophen (Tylenol 325mg Tab) 650 mg PO Q4 PRN PRN Reason: Fever >100.4 F Last Admin: 12/30/18 20:28 Dose: 650 mg Amlodipine Besylate (Norvasc) 10 mg PO DAILY [facility] Last Admin: 12/31/18 08:25 Dose: 10 mg Aspirin (Ecotrin) 81 mg PO DAILY [facility] Last Admin: 12/31/18 08:12 Dose: 81 mg Atorvastatin Calcium (Lipitor) 40 mg PO HS [facility] Last Admin: 12/30/18 21:38 Dose: 40 mg Azithromycin 500 mg/ Sodium (Chloride) 250 mls @ 250 mls/hr IVPB DAILY [facility]; Protocol Last Admin: 12/31/18 08:12 Dose: 250 mls/hr Lisinopril (Zestril) 20 mg PO DAILY [facility] Last Admin: 12/31/18 08:25 Dose: 20 mg Physical Exam - Constitutional Appears: Well - Head Exam Head Exam: ATRAUMATIC, NORMAL INSPECTION, NORMOCEPHALIC - Eye Exam Eye Exam: EOMI, Normal appearance, PERRL Pupil Exam: NORMAL ACCOMODATION, PERRL - ENT Exam ENT Exam: Mucous Membranes Moist, Normal Exam - Neck Exam Neck exam: Positive for: Normal Inspection - Respiratory Exam Respiratory Exam: Clear to Auscultation Bilateral, NORMAL BREATHING PATTERN - Cardiovascular Exam Cardiovascular Exam: REGULAR RHYTHM, +S1, +S2 - GI/Abdominal Exam GI & Abdominal Exam: Normal Bowel Sounds, Soft. absent: Tenderness - Extremities Exam Extremities exam: Positive for: normal inspection - Back Exam Back exam: NORMAL INSPECTION - Neurological Exam Neurological exam: Alert, CN II-XII Intact, Normal Gait, Oriented x3, Reflexes Normal - Psychiatric Exam Psychiatric exam: Normal Affect, Normal Mood - Skin Skin Exam: Dry, Intact, Normal Color, Warm Results - Vital Signs Recent Vital Signs: Last Vital Signs Temp 98.3 F 12/31/18 13:00 Pulse 74 12/31/18 13:00 Resp 18 12/31/18 13:00 BP 142/67 12/31/18 13:00 Pulse Ox 97 12/31/18 13:00 - Labs Result Diagrams: 12/30/18 04:50 12/30/18 04:50 Labs: Laboratory Results - last 24 hr 12/30/18 22:39 Urine Color Yellow Urine Clarity Clear Urine pH 7.0 Ur Specific [place] 1.010 Urine Protein Negative Urine Glucose (UA) Neg Urine Ketones Negative Urine Blood Negative Urine Nitrate Negative Urine Bilirubin Negative Urine Urobilinogen 0.2-1.0 Ur Leukocyte Esterase Neg Urine RBC (Auto) < 1 Urine Microscopic WBC < 1 Assessment & Plan (1) Syncope Assessment and Plan: Likely vaso-vagal or neurocardiogenic. EEG is normal, MRI is not acute. No further recommendations. Thank you for this consultation. Status: Acute Priority: High
--- NOTE | 2018-12-31 16:25 | CP.PCM.PN ---
Objective - Vital Signs/Intake and Output Vital Signs (last 24 hours): Temp Pulse Resp BP Pulse Ox 99.1 F 78 20 137/63 95 12/31/18 15:43 12/31/18 15:43 12/31/18 15:43 12/31/18 15:43 12/31/18 15:43 - Medications Medications: Current Medications Acetaminophen (Tylenol 325mg Tab) 650 mg PO Q4 PRN PRN Reason: Headache Acetaminophen (Tylenol 325mg Tab) 650 mg PO Q4 PRN PRN Reason: Fever >100.4 F Last Admin: 12/30/18 20:28 Dose: 650 mg Amlodipine Besylate (Norvasc) 10 mg PO DAILY [facility] Last Admin: 12/31/18 08:25 Dose: 10 mg Aspirin (Ecotrin) 81 mg PO DAILY [facility] Last Admin: 12/31/18 08:12 Dose: 81 mg Atorvastatin Calcium (Lipitor) 40 mg PO HS [facility] Last Admin: 12/30/18 21:38 Dose: 40 mg Azithromycin 500 mg/ Sodium (Chloride) 250 mls @ 250 mls/hr IVPB DAILY [facility]; Protocol Last Admin: 12/31/18 08:12 Dose: 250 mls/hr Lisinopril (Zestril) 20 mg PO DAILY [facility] Last Admin: 12/31/18 08:25 Dose: 20 mg - Labs Labs: 12/30/18 04:50 12/30/18 04:50 PT 11.4 Seconds (9.8-13.1) 12/29/18 17:12 INR 1.0 12/29/18 17:12 APTT 26.2 Seconds (25.6-37.1) 12/29/18 17:12 Assessment and Plan (1) Syncope Status: Acute (2) Viral syndrome Status: Acute (3) Ischemic changes on head CT Status: Chronic (4) Brain stem infarction Status: Chronic (5) Hx of cerebral infarction Status: Chronic (6) HTN (hypertension) Status: Chronic (7) Hypercholesterolemia Status: Chronic (8) Dehydration Status: Resolved
--- NOTE | 2018-12-31 16:29 | CP.PCM.DIS ---
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 Most Recent Lab Values WBC 9.1 K/uL (4.8-10.8) 12/30/18 04:50 RBC 4.16 Mil/uL (4.40-5.90) L 12/30/18 04:50 Hgb 12.4 g/dL (12.0-18.0) 12/30/18 04:50 Hct 37.2 % (35.0-51.0) 12/30/18 04:50 MCV 89.4 fl (80.0-94.0) 12/30/18 04:50 MCH 29.8 pg (27.0-31.0) 12/30/18 04:50 MCHC 33.4 g/dL (33.0-37.0) 12/30/18 04:50 RDW 14.2 % (11.5-14.5) 12/30/18 04:50 Plt Count 161 K/uL (130-400) 12/30/18 04:50 MPV 8.5 fl (7.2-11.7) 12/30/18 04:50 Neut % (Auto) 74.6 % (50.0-75.0) 12/30/18 04:50 Lymph % (Auto) 13.1 % (20.0-40.0) L 12/30/18 04:50 [place] % (Auto) 9.9 % (0.0-10.0) 12/30/18 04:50 Eos % (Auto) 2.0 % (0.0-4.0) 12/30/18 04:50 Baso % (Auto) 0.4 % (0.0-2.0) 12/30/18 04:50 Neut # (Auto) 6.8 K/uL (1.8-7.0) 12/30/18 04:50 Lymph # (Auto) 1.2 K/uL (1.0-4.3) 12/30/18 04:50 [place] # (Auto) 0.9 K/uL (0.0-0.8) H 12/30/18 04:50 Eos # (Auto) 0.2 K/uL (0.0-0.7) 12/30/18 04:50 Baso # (Auto) 0.0 K/uL (0.0-0.2) 12/30/18 04:50 Neutrophils % (Manual) 79 % (42-75) H 12/29/18 17:12 Band Neutrophils % 1 % (0-2) 12/29/18 17:12 Lymphocytes % (Manual) 10 % (20-50) L 12/29/18 17:12 Monocytes % (Manual) 8 % (0-10) 12/29/18 17:12 Eosinophils % (Manual) 2 % (0-7) 12/29/18 17:12 Platelet Estimate Normal (NORMAL) 12/29/18 17:12 RBC Morphology Normal (NORMAL) 12/29/18 17:12 PT 11.4 Seconds (9.8-13.1) 12/29/18 17:12 INR 1.0 12/29/18 17:12 APTT 26.2 Seconds (25.6-37.1) 12/29/18 17:12 Sodium 142 mmol/l (132-148) 12/30/18 04:50 Potassium 4.7 MMOL/L (3.6-5.0) 12/30/18 04:50 Chloride 107 mmol/L (98-107) 12/30/18 04:50 Carbon Dioxide 29 mmol/L (22-30) 12/30/18 04:50 Anion Gap 11 (10-20) 12/30/18 04:50 BUN 21 mg/dl (9-20) H 12/30/18 04:50 Creatinine 1.1 mg/dl (0.8-1.5) 12/30/18 04:50 Est GFR ( Amer) > 60 12/30/18 04:50 Est GFR (Non-Af Amer) > 60 12/30/18 04:50 POC Glucose (mg/dL) 85 mg/dL (65-110) 12/29/18 16:42 Random Glucose 102 mg/dL (75-110) 12/30/18 04:50 Lactic Acid 1.3 mmol/L (0.7-2.1) 12/29/18 17:00 Calcium 9.1 mg/dL (8.4-10.2) 12/30/18 04:50 Phosphorus 4.4 mg/dl (2.5-4.5) 12/29/18 17:12 Magnesium 2.4 MG/DL (1.6-2.3) H 12/29/18 17:12 Total Bilirubin 0.8 mg/dl (0.2-1.3) 12/30/18 04:50 AST 27 U/L (17-59) 12/30/18 04:50 ALT 34 U/L (21-72) 12/30/18 04:50 Alkaline Phosphatase 84 U/L (38-126) 12/30/18 04:50 Troponin I 0.0160 ng/mL (0.00-0.120) 12/29/18 17:12 Total Protein 7.0 G/DL (6.3-8.2) 12/30/18 04:50 Albumin 3.8 g/dL (3.5-5.0) 12/30/18 04:50 Globulin 3.2 gm/dL (2.2-3.9) 12/30/18 04:50 Albumin/Globulin Ratio 1.2 (1.0-2.1) 12/30/18 04:50 Triglycerides 63 mg/DL (0-149) 12/30/18 04:50 Cholesterol 146 mg/dL (0-199) 12/30/18 04:50 LDL Cholesterol Direct 71 mg/dL (0-129) 12/30/18 04:50 HDL Cholesterol 53 MG/DL (30-70) 12/30/18 04:50 Lipase 26 U/L (23-300) 12/29/18 17:12 TSH 3rd Generation 0.83 mIU/ML (0.46-4.68) 12/30/18 04:50 Urine Color Yellow (YELLOW) 12/30/18 22:39 Urine Clarity Clear (Clear) 12/30/18 22:39 Urine pH 7.0 (5.0-8.0) 12/30/18 22:39 Ur Specific [place] 1.010 (1.003-1.030) 12/30/18 22:39 Urine Protein Negative mg/dL (NEGATIVE) 12/30/18 22:39 Urine Glucose (UA) Neg mg/dL (NEGATIVE) 12/30/18 22:39 Urine Ketones Negative mg/dL (NEGATIVE) 12/30/18 22:39 Urine Blood Negative (NEGATIVE) 12/30/18 22:39 Urine Nitrate Negative (NEGATIVE) 12/30/18 22:39 Urine Bilirubin Negative (NEGATIVE) 12/30/18 22:39 Urine Urobilinogen 0.2-1.0 mg/dL (0.2-1.0) 12/30/18 22:39 Ur Leukocyte Esterase Neg Karen/uL (Negative) 12/30/18 22:39 Urine RBC (Auto) < 1 /hpf (0-3) 12/30/18 22:39 Urine Microscopic WBC < 1 /hpf (0-5) 12/30/18 22:39 Influenza Typ A,B (EIA) Negative for flu a/b (NEGATIVE) 12/29/18 20:05 Grp A Beta Strep Ag Negative (NEGATIVE) 12/29/18 20:05 Blood Type A POSITIVE 12/29/18 17:00 Blood Type Confirm A POSITIVE 12/29/18 17:39 Antibody Screen Negative 12/29/18 17:00 BBK History Checked No verified bt 12/29/18 17:00 Discharge Exam - Head Exam Head Exam: ATRAUMATIC, NORMAL INSPECTION, NORMOCEPHALIC Discharge Plan - Follow Up Plan Condition: GOOD Disposition: HOME/ ROUTINE Referrals: Loco Parsons Jr., MD [Family Provider] - Daniel Thompson MD [Staff Provider] -
[2018-12-31 18:16] LABS: BASO # 0.1 K/uL (0.0-0.2); BASO % 0.6 % (0.0-2.0); EOS # 0.2 K/uL (0.0-0.7); HEMOGLOBIN 13.1 g/dL (12.0-18.0); LYMPH # 1.6 K/uL (1.0-4.3); LYMPH % 15.8 % (20.0-40.0); MEAN CELL VOLUME 89.3 fl (80.0-94.0); MEAN CORPUSCULAR HEMOGLOBIN 29.9 pg (27.0-31.0); MEAN CORPUSCULAR HGB CONC 33.5 g/dL (33.0-37.0); MEAN PLATELET VOLUME 8.7 fl (7.2-11.7); MONO # 0.9 K/uL (0.0-0.8); MONO % 8.4 % (0.0-10.0); NEUT # 7.6 K/uL (1.8-7.0); NEUT % 73.2 % (50.0-75.0); NRBC % 0.1 % (0.0-0.0); RBC 4.38 Mil/uL (4.40-5.90); RED CELL DISTRIBUTION WIDTH 13.9 % (11.5-14.5); WHITE BLOOD COUNT 10.4 K/uL (4.8-10.8)
[2018-12-31 18:32] LABS: ALB/GLOB RATIO 1.1 (1.0-2.1); ALBUMIN 3.9 g/dL (3.5-5.0); ALT/SGPT 23 U/L (21-72); AST/SGOT 28 U/L (17-59); BLOOD UREA NITROGEN 31 mg/dl (9-20); CALCIUM 8.9 mg/dL (8.4-10.2); GFR NON-AFRICAN AMERICAN 53
[2018-12-31 21:06] LABS: SQUAMOUS EPITHIAL < 1 /hpf (0-5); URINE BILIRUBIN NEGATIVE (NEGATIVE); URINE BLOOD NEGATIVE (NEGATIVE); URINE CLARITY CLEAR (Clear); URINE COLOR STRAW (YELLOW); URINE GLUCOSE (UA) NEG (NEGATIVE); URINE LEUKOCYTE ESTERASE NEG Leu/uL (Negative); URINE PROTEIN NEGATIVE (NEGATIVE); URINE UROBILINOGEN 0.2-1.0 mg/dL (0.2-1.0)
--- NOTE | 2018-12-31 23:08 | CP.PCM.PN ---
Subjective - Subjective Subjective: Discharge was cancelled yesterday, Patient was feeling weak, low grade temp previous day, feeling better today Objective - Vital Signs/Intake and Output Vital Signs (last 24 hours): Temp Pulse Resp BP Pulse Ox 98.2 F 78 20 129/79 97 12/31/18 20:21 12/31/18 20:21 12/31/18 20:21 12/31/18 20:21 12/31/18 20:21 - Medications Medications: Current Medications Acetaminophen (Tylenol 325mg Tab) 650 mg PO Q4 PRN PRN Reason: Headache Last Admin: 12/31/18 21:18 Dose: 650 mg Acetaminophen (Tylenol 325mg Tab) 650 mg PO Q4 PRN PRN Reason: Fever >100.4 F Last Admin: 12/30/18 20:28 Dose: 650 mg Amlodipine Besylate (Norvasc) 10 mg PO DAILY [facility] Last Admin: 12/31/18 08:25 Dose: 10 mg Aspirin (Ecotrin) 81 mg PO DAILY [facility] Last Admin: 12/31/18 08:12 Dose: 81 mg Atorvastatin Calcium (Lipitor) 40 mg PO [facility] Last Admin: 12/31/18 21:17 Dose: 40 mg Azithromycin 500 mg/ Sodium (Chloride) 250 mls @ 250 mls/hr IVPB DAILY [facility]; Protocol Last Admin: 12/31/18 08:12 Dose: 250 mls/hr Lisinopril (Zestril) 20 mg PO DAILY [facility] Last Admin: 12/31/18 08:25 Dose: 20 mg - Labs Labs: 12/31/18 17:41 12/31/18 17:41 PT 11.4 Seconds (9.8-13.1) 12/29/18 17:12 INR 1.0 12/29/18 17:12 APTT 26.2 Seconds (25.6-37.1) 12/29/18 17:12 - Constitutional Appears: No Acute Distress - Head Exam Head Exam: NORMAL INSPECTION - Eye Exam Eye Exam: PERRL - ENT Exam ENT Exam: Normal Oropharynx - Neck Exam Neck Exam: Normal Inspection - Respiratory Exam Respiratory Exam: Clear to Ausculation Bilateral - Cardiovascular Exam Cardiovascular Exam: REGULAR RHYTHM - GI/Abdominal Exam GI & Abdominal Exam: Soft, Normal Bowel Sounds - Extremities Exam Extremities Exam: Normal Inspection - Back Exam Back Exam: NORMAL INSPECTION - Neurological Exam Neurological Exam: Alert, CN II-XII Intact, Oriented x3 Additional comments: no focal motor/sensory deficit - Psychiatric Exam Psychiatric exam: Anxious - Skin Skin Exam: Warm Assessment and Plan (1) Syncope Status: Acute (2) Viral syndrome Status: Acute (3) Ischemic changes on head CT Status: Chronic (4) Brain stem infarction Status: Chronic (5) Hx of cerebral infarction Status: Chronic (6) HTN (hypertension) Status: Chronic (7) Hypercholesterolemia Status: Chronic (8) Dehydration Status: Resolved - Assessment and Plan (Free Text) Plan: continue Zithromax, Lipitor, Norvasc, Zestril and rest of Tx
[2019-01-01] MEDS: Azithromycin 500 MG in Sodium Chloride 0.9% 250 ML IVPB SCH (08:21)
--- NOTE | 2019-01-01 16:51 | CP.PCM.PN ---
Subjective - Subjective Subjective: weakness improved Objective - Vital Signs/Intake and Output Vital Signs (last 24 hours): Temp Pulse Resp BP Pulse Ox 98.7 F 75 20 146/66 99 01/01/19 16:43 01/01/19 16:43 01/01/19 16:43 01/01/19 16:43 01/01/19 16:43 - Medications Medications: Current Medications Acetaminophen (Tylenol 325mg Tab) 650 mg PO Q4 PRN PRN Reason: Headache Last Admin: 12/31/18 21:18 Dose: 650 mg Acetaminophen (Tylenol 325mg Tab) 650 mg PO Q4 PRN PRN Reason: Fever >100.4 F Last Admin: 12/30/18 20:28 Dose: 650 mg Amlodipine Besylate (Norvasc) 10 mg PO DAILY [facility] Last Admin: 01/01/19 08:20 Dose: 10 mg Aspirin (Ecotrin) 81 mg PO DAILY [facility] Last Admin: 01/01/19 08:20 Dose: 81 mg Atorvastatin Calcium (Lipitor) 40 mg PO HS [facility] Last Admin: 12/31/18 21:17 Dose: 40 mg Azithromycin 500 mg/ Sodium (Chloride) 250 mls @ 250 mls/hr IVPB DAILY [facility]; Protocol Last Admin: 01/01/19 08:21 Dose: 250 mls/hr Lisinopril (Zestril) 20 mg PO DAILY [facility] Last Admin: 01/01/19 08:20 Dose: 20 mg - Labs Labs: 12/31/18 17:41 12/31/18 17:41 PT 11.4 Seconds (9.8-13.1) 12/29/18 17:12 INR 1.0 12/29/18 17:12 APTT 26.2 Seconds (25.6-37.1) 12/29/18 17:12 - Constitutional Appears: No Acute Distress - Head Exam Head Exam: NORMAL INSPECTION - Eye Exam Eye Exam: PERRL - ENT Exam ENT Exam: Normal Exam - Neck Exam Neck Exam: Normal Inspection - Respiratory Exam Respiratory Exam: Clear to Ausculation Bilateral - Cardiovascular Exam Cardiovascular Exam: REGULAR RHYTHM - GI/Abdominal Exam GI & Abdominal Exam: Soft, Normal Bowel Sounds - Extremities Exam Extremities Exam: Normal Inspection - Back Exam Back Exam: NORMAL INSPECTION - Neurological Exam Neurological Exam: Alert, CN II-XII Intact Additional comments: no focal motor/sensory deficit - Psychiatric Exam Psychiatric exam: Anxious - Skin Skin Exam: Warm Assessment and Plan (1) Syncope Status: Acute (2) Viral syndrome Status: Acute (3) Ischemic changes on head CT Status: Chronic (4) Brain stem infarction Status: Chronic (5) Hx of cerebral infarction Status: Chronic (6) HTN (hypertension) Status: Chronic (7) Hypercholesterolemia Status: Chronic (8) Dehydration Status: Resolved - Assessment and Plan (Free Text) Plan: continue Zit romax, Zestril, Norvasc, CBC, CMP am
[2019-01-01 20:26] VITALS: RESP 18
[2019-01-02 08:02] VITALS: O2SAT 99
[2019-01-02] MEDS: Azithromycin 500 MG in Sodium Chloride 0.9% 250 ML IVPB SCH (09:39)
[2019-01-02 11:18] LABS: MEAN CELL VOLUME 89.3 fl (80.0-94.0); MEAN CORPUSCULAR HEMOGLOBIN 29.8 pg (27.0-31.0); MEAN CORPUSCULAR HGB CONC 33.4 g/dL (33.0-37.0); RBC 4.03 Mil/uL (4.40-5.90); RED CELL DISTRIBUTION WIDTH 13.5 % (11.5-14.5); WHITE BLOOD COUNT 5.9 K/uL (4.8-10.8)
[2019-01-02 11:43] LABS: ALBUMIN 3.4 g/dL (3.5-5.0); ALT/SGPT 32 U/L (21-72); AST/SGOT 25 U/L (17-59); BLOOD UREA NITROGEN 25 mg/dl (9-20); CALCIUM 8.6 mg/dL (8.4-10.2); GFR NON-AFRICAN AMERICAN 59
[2019-01-02 11:49] VITALS: BP 127/67; PULSE 75; TEMP 97.5
--- NOTE | 2019-01-02 17:06 | CP.PCM.DIS ---
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 (5) Hx of cerebral infarction Status: Chronic Priority: High (6) HTN (hypertension) Status: Chronic Priority: Medium (7) Hypercholesterolemia Status: Chronic Priority: Medium (8) Dehydration Status: Resolved Hospital Course - Lab Results Lab Results: Micro Results 12/31/18 07:00 Urine Random Urine Culture - Final No Growth (<1,000 CFU/ML) 12/30/18 21:02 Blood Blood Culture - Preliminary NO GROWTH AFTER 48 HOURS 12/30/18 20:52 Blood Blood Culture - Preliminary NO GROWTH AFTER 48 HOURS 12/31/18 17:51 Blood Blood Culture - Preliminary NO GROWTH AFTER 24 HOURS 12/31/18 17:41 Blood Blood Culture - Preliminary NO GROWTH AFTER 24 HOURS 12/30/18 13:00 Urine,Clean Catch Urine Culture - Final No Growth (<1,000 CFU/ML) 12/29/18 20:05 Throat Group A Strep Throat Culture - Final NO BETA STREP GROUP A ISOLATED. Most Recent Lab Values WBC 5.9 K/uL (4.8-10.8) 01/02/19 10:55 RBC 4.03 Mil/uL (4.40-5.90) L 01/02/19 10:55 Hgb 12.0 g/dL (12.0-18.0) 01/02/19 10:55 Hct 36.0 % (35.0-51.0) 01/02/19 10:55 MCV 89.3 fl (80.0-94.0) 01/02/19 10:55 MCH 29.8 pg (27.0-31.0) 01/02/19 10:55 MCHC 33.4 g/dL (33.0-37.0) 01/02/19 10:55 RDW 13.5 % (11.5-14.5) 01/02/19 10:55 Plt Count 168 K/uL (130-400) 01/02/19 10:55 MPV 8.7 fl (7.2-11.7) 12/31/18 17:41 Neut % (Auto) 73.2 % (50.0-75.0) 12/31/18 17:41 Lymph % (Auto) 15.8 % (20.0-40.0) L 12/31/18 17:41 [place] % (Auto) 8.4 % (0.0-10.0) 12/31/18 17:41 Eos % (Auto) 2.0 % (0.0-4.0) 12/31/18 17:41 Baso % (Auto) 0.6 % (0.0-2.0) 12/31/18 17:41 Neut # (Auto) 7.6 K/uL (1.8-7.0) H 12/31/18 17:41 Lymph # (Auto) 1.6 K/uL (1.0-4.3) 12/31/18 17:41 [place] # (Auto) 0.9 K/uL (0.0-0.8) H 12/31/18 17:41 Eos # (Auto) 0.2 K/uL (0.0-0.7) 12/31/18 17:41 Baso # (Auto) 0.1 K/uL (0.0-0.2) 12/31/18 17:41 Neutrophils % (Manual) 79 % (42-75) H 12/29/18 17:12 Band Neutrophils % 1 % (0-2) 12/29/18 17:12 Lymphocytes % (Manual) 10 % (20-50) L 12/29/18 17:12 Monocytes % (Manual) 8 % (0-10) 12/29/18 17:12 Eosinophils % (Manual) 2 % (0-7) 12/29/18 17:12 Platelet Estimate Normal (NORMAL) 12/29/18 17:12 RBC Morphology Normal (NORMAL) 12/29/18 17:12 PT 11.4 Seconds (9.8-13.1) 12/29/18 17:12 INR 1.0 12/29/18 17:12 APTT 26.2 Seconds (25.6-37.1) 12/29/18 17:12 Sodium 144 mmol/l (132-148) 01/02/19 10:55 Potassium 4.1 MMOL/L (3.6-5.0) 01/02/19 10:55 Chloride 108 mmol/L (98-107) H 01/02/19 10:55 Carbon Dioxide 27 mmol/L (22-30) 01/02/19 10:55 Anion Gap 13 (10-20) 01/02/19 10:55 BUN 25 mg/dl (9-20) H 01/02/19 10:55 Creatinine 1.2 mg/dl (0.8-1.5) 01/02/19 10:55 Est GFR ( Amer) > 60 01/02/19 10:55 Est GFR (Non-Af Amer) 59 01/02/19 10:55 POC Glucose (mg/dL) 85 mg/dL (65-110) 12/29/18 16:42 Random Glucose 77 mg/dL (75-110) 01/02/19 10:55 Lactic Acid 1.3 mmol/L (0.7-2.1) 12/29/18 17:00 Calcium 8.6 mg/dL (8.4-10.2) 01/02/19 10:55 Phosphorus 2.7 mg/dl (2.5-4.5) 01/02/19 10:55 Magnesium 2.4 MG/DL (1.6-2.3) H 12/29/18 17:12 Total Bilirubin 0.4 mg/dl (0.2-1.3) 01/02/19 10:55 AST 25 U/L (17-59) 01/02/19 10:55 ALT 32 U/L (21-72) 01/02/19 10:55 Alkaline Phosphatase 66 U/L (38-126) 01/02/19 10:55 Troponin I 0.0160 ng/mL (0.00-0.120) 12/29/18 17:12 Total Protein 6.8 G/DL (6.3-8.2) 01/02/19 10:55 Albumin 3.4 g/dL (3.5-5.0) L 01/02/19 10:55 Globulin 3.3 gm/dL (2.2-3.9) 01/02/19 10:55 Albumin/Globulin Ratio 1.0 (1.0-2.1) 01/02/19 10:55 Triglycerides 63 mg/DL (0-149) 12/30/18 04:50 Cholesterol 146 mg/dL (0-199) 12/30/18 04:50 LDL Cholesterol Direct 71 mg/dL (0-129) 12/30/18 04:50 HDL Cholesterol 53 MG/DL (30-70) 12/30/18 04:50 Lipase 26 U/L (23-300) 12/29/18 17:12 TSH 3rd Generation 0.83 mIU/ML (0.46-4.68) 12/30/18 04:50 Urine Color Straw (YELLOW) 12/31/18 20:40 Urine Clarity Clear (Clear) 12/31/18 20:40 Urine pH 6.0 (5.0-8.0) 12/31/18 20:40 Ur Specific [place] 1.011 (1.003-1.030) 12/31/18 20:40 Urine Protein Negative mg/dL (NEGATIVE) 12/31/18 20:40 Urine Glucose (UA) Neg mg/dL (NEGATIVE) 12/31/18 20:40 Urine Ketones Negative mg/dL (NEGATIVE) 12/31/18 20:40 Urine Blood Negative (NEGATIVE) 12/31/18 20:40 Urine Nitrate Negative (NEGATIVE) 12/31/18 20:40 Urine Bilirubin Negative (NEGATIVE) 12/31/18 20:40 Urine Urobilinogen 0.2-1.0 mg/dL (0.2-1.0) 12/31/18 20:40 Ur Leukocyte Esterase Neg Karen/uL (Negative) 12/31/18 20:40 Urine RBC (Auto) 1 /hpf (0-3) 12/31/18 20:40 Urine Microscopic WBC < 1 /hpf (0-5) 12/31/18 20:40 Ur Squamous Epith Cells < 1 /hpf (0-5) 12/31/18 20:40 Influenza Typ A,B (EIA) Negative for flu a/b (NEGATIVE) 12/29/18 20:05 Grp A Beta Strep Ag Negative (NEGATIVE) 12/29/18 20:05 Blood Type A POSITIVE 04/18/19 17:00 Blood Type Confirm A POSITIVE 12/29/18 17:39 Antibody Screen Negative 12/29/18 17:00 BBK History Checked No verified bt 12/29/18 17:00 Discharge Exam - Head Exam Head Exam: NORMAL INSPECTION Discharge Plan - Discharge Medications Prescriptions: Azithromycin [Zithromax] 500 mg PO DAILY #5 tablet - Follow Up Plan Condition: FAIR Disposition: HOME/ ROUTINE Instructions: Syncope (Fainting) (DC) Additional Instructions: follow up with MD in 1 week Referrals: Loco Parsons Jr., MD [Family Provider] - Daniel Thompson MD [Staff Provider] -
--- NOTE | 2019-01-03 08:08 | CARD ---
APPROVED REPORT Date of service: 12/30/2018 EXAM: Two-dimensional and M-mode echocardiogram with Doppler and color Doppler. Other Information Quality : AverageRhythm : NSR Technically limited study due to body habitus. INDICATION Syncope 2D DIMENSIONS IVSd2.47 (0.7-1.1cm)LVDd3.49 (3.9-5.9cm) PWd1.11 (0.7-1.1cm)LA Weppcy00 (18-58mL) LVDs2.36 (2.5-4.0cm)FS (%) 32.4 % M-Mode DIMENSIONS Left Atrium (MM)3.77 (2.5-4.0cm)Aortic Root2.97 (2.2-3.7cm) Aortic Cusp Exc.1.90 (1.5-2.0cm) Aortic Valve AoV Peak Ovhukwrf332.7cm/Elie Peak GR.5mmHgLVOT Peak Fcxtbqxa30.6cm/s AI P 1/2 [id number] Mitral Valve MV E Phyllkge48.1cm/sMV DECEL [id number] A Ppsamdbx71.8cm/s MV XPF58reU/A ratio0.6MVA (PHT)4.16cm2 TDI Lateral E' Peak V6.52cm/sMedial E' Peak V5.54cm/sE/Lateral E'7.8 E/Medial E'9.2 Pulmonary Valve PV Peak Qvabjrtn79.8cm/s LEFT VENTRICLE The left ventricle is normal size. There is moderate to severe concentric left ventricular hypertrophy. Left ventricle systolic function is normal. >70% There is vigorius LV segmental wall motion. Transmitral Doppler flow pattern is Grade I-abnormal relaxation pattern. RIGHT VENTRICLE The right ventricle is normal size. There is normal right ventricular wall thickness. The right ventricular systolic function is normal. ATRIA The left atrium size is normal. The right atrium size is normal. AORTIC VALVE The aortic valve is mildly sclerotic. There is trace to mild aortic regurgitation. There is no aortic valvular stenosis. MITRAL VALVE The mitral valve is normal in structure. There is no evidence of mitral valve prolapse. No LUIGI detected. There is no mitral valve stenosis. There is no mitral valve regurgitation noted. TRICUSPID VALVE The tricuspid valve is normal in structure. There is no tricuspid valve regurgitation noted. PULMONIC VALVE The pulmonary valve is normal in structure. There is no pulmonic valvular regurgitation. GREAT VESSELS The aortic root is normal in size. The IVC is normal in size and collapses >50% with inspiration. PERICARDIAL EFFUSION The pericardium appears normal. <Conclusion> The left ventricle is normal size. There is moderate to severe concentric left ventricular hypertrophy. There is vigorius LV segmental wall motion. Left ventricle systolic function is normal. >70% Transmitral Doppler flow pattern is Grade I-abnormal relaxation pattern.
== END 2019-01-02 15:10 | disposition home or self-care (01) | DRG 866 ==
LOC: H.ER 16:16 → H.ERHOLD 19:16 → OBSVTOIN 19:16 → H.TEL 22:14
PROVIDERS: ADMIT Internal Medicine Pulmonary Disease; ATTEND Internal Medicine Pulmonary Disease
DX: B34.9 Viral infection, unspecified (principal); E86.0 Dehydration; R55 Syncope and collapse; E78.00 Pure hypercholesterolemia, unspecified; E78.5 Hyperlipidemia, unspecified; J32.4 Chronic pansinusitis; Z79.82 Long term (current) use of aspirin; Z86.73 Personal history of transient ischemic attack (TIA), and cerebral infarction without residual deficits; Z91.14 Patient's other noncompliance with medication regimen; Z79.899 Other long term (current) drug therapy; R00.0 Tachycardia, unspecified; R01.1 Cardiac murmur, unspecified; I11.9 Hypertensive heart disease without heart failure